=== PATIENT | male | born 1950 | race Caucasian/White ===

== ENCOUNTER 2017-02-04 10:01 | Day surgery (SDC) | payer MEDICARE ==
[2017-02-04] VITALS (7 sets, daily range): BP systolic 101–150; BP diastolic 58–99; PULSE 80–89; RESP 16–20; TEMP 97.6–98.7; O2SAT 92–95
[~2017-02-04] VITALS: Ht 172.7 cm; Wt 88.6 kg
[~2017-02-04 10:01] MED LIST: LISI-586 PO; LORTA5 PO; PHEN100C PO
[2017-02-04] MEDS ORDERED: LISI20TA PO (10:19)
[2017-02-04] MEDS ORDERED: PHEN100C PO (10:19)
[2017-02-04] MEDS ORDERED: SODIUM CHLOR 0.9% 1000 ML IV SCH (10:30)
[2017-02-04] MEDS ORDERED: MIDAZOLAM HCL 2 MG/2 ML VIAL ONE (12:37)
--- NOTE | 2017-02-04 13:03 | PD.RAD ---
Post CT Procedure Prog Note Pre Procedure Diagnosis: (1) Elevated liver enzymes Post Procedure Diagnosis: (1) Elevated liver enzymes Procedure Date: Feb 04, 2017 Supervising Radiologist: Noble Mead Anesthesia: Conscious Sedation Plan of Activity Patient to Unit: [facility]OPU Patient Condition: Good See PACS Report for procedural detail/treatment Noble Mead MD Feb 04, 2017 13:03
[2017-02-04] MEDS ORDERED: LIDOCAINE 1%/EPINEPHrine 1:100,000 SOLN 20 ML VIAL ONE (13:10)
[2017-02-04] MEDS ORDERED: GELATIN 12 MM/7 MM FOAM ONE (13:14)
--- NOTE | 2017-02-04 13:40 | RADRPT ---
EXAM DATE/TIME: 02/04/2017 12:47 [place] COMPARISON: No previous studies available for comparison. INDICATIONS : Hepatitis C. SEDATION TIME: 30 minutes BIOPSY SITE: liver MEDICATION(S): 1.) 2 mg midazolam (Versed) IV 2.) 100 mcg fentanyl (Sublimaze) IV DEVICE(S): 1.) 16 gauge [place] blunt needle 10cm 2.) 18 gauge [place] core biopsy needle 15cm MEDICAL HISTORY : Hepatitis C. SURGICAL HISTORY : None. ENCOUNTER: Initial ACUITY: 1 day PAIN SCORE: 0/10 LOCATION: Right lateral A total of four core specimen(s) were obtained and sent to the laboratory for pathologic evaluation. PROCEDURE: 1. CT guided liver biopsy. 2. Conscious sedation with continuous EKG and oximetry monitoring. Prior to the procedure informed consent was obtained. Any appropriate prior imaging studies were rev iewed. Using automated exposure control and adjustment of the mA and/or kV according to patient size, radiat ion dose was kept as low as reasonably achievable to obtain optimal diagnostic quality images. DICOM format image data is available electronically for review and comparison. The site was prepped in a sterile fashion. Full sterile technique was used, including cap, mask, shannon rile gloves and gown and a large sterile sheet. Hand hygiene and 2% chlorhexidine and/or betadine/al cohol prep was utilized per protocol for cutaneous antisepsis. The skin and subcutaneous tissues wer e infiltrated with local anesthetic solution. With CT guidance the previously identified target was localized. Biopsy was performed using the presc ribed needle as above. Adequate hemostasis was obtained with compression at the puncture site. Follow-up CT scan reveals no hemorrhage. The patient tolerated the procedure well and there were no complications. The patient was returned to the Radiology Outpatient Unit in stable condition. CONCLUSION: Uncomplicated CT guided biopsy. Noble Mead MD on February 04, 2017 at 13:37 Board Certified Radiologist. This report was verified electronically.
== END 2017-02-04 16:25 | disposition home or self-care (01) ==
LOC: HRAD 10:01 → HRIP 10:04 → HRAD 16:25
DX: B18.2 Chronic viral hepatitis C (principal); I10 Essential (primary) hypertension; F17.210 Nicotine dependence, cigarettes, uncomplicated
CPT/HCPCS: 47000; 77012; 88307; 88313; J2250; J3010; J7030